=== PATIENT | female | born 1980 | race Caucasian/White ===

== ENCOUNTER 2017-11-29 09:56 | Emergency (ER) | payer MEDICAID ==
[~2017-11-29] VITALS: Ht 165.1 cm; Wt 94.3 kg
[~2017-11-29 09:56] MED LIST: ALBU6.7H INH; dayquil
[2017-11-29 10:09] VITALS: BP 115/79
[2017-11-29] MEDS ORDERED: MULT-231 PO (10:22)
[2017-11-29] MEDS ORDERED: PROPARACAINE OPHTH 0.5%, 15ML ONE (10:25)
[2017-11-29] MEDS ORDERED: DARU1TAB PO (10:25)
[2017-11-29] MEDS ORDERED: EMTR1TAB8 PO (10:26)
[2017-11-29] MEDS ORDERED: FERR325T18 PO (10:26)
[2017-11-29] MEDS ORDERED: BUPR300T49 PO (10:27)
[2017-11-29] MEDS ORDERED: CITA20TA6 PO (10:27)
== END 2017-11-29 11:10 | disposition home or self-care (01) ==
LOC: ED 10:58
DX: H11.31 Conjunctival hemorrhage, right eye (principal); J45.909 Unspecified asthma, uncomplicated
CPT/HCPCS: 99282